=== PATIENT | male | born 1980 | race Caucasian/White ===

== ENCOUNTER 2020-07-06 16:36 | Emergency (ER) | payer OTHER, MEDICARE ==
[~2020-07-06] VITALS: Ht 175.3 cm; Wt 77.5 kg
--- NOTE | 2020-07-06 17:00 | NUR ---
PT BIB BY EMS FOR LOWER BACK PAIN THAT RADIATES TO BILATERAL LEGS. PT REFERRED FROM URGENT CARE. PT HAD BACK SURGERY AT [facility] JUNE 2019. PAIN 02/19. PT ALSO HAS NUMBNESS AND TINGLING IN THE LOWER EXTS. PT HAD A RECENT FALL WELL AND BLACKED OUT.
--- NOTE | 2020-07-06 17:23 | NUR ---
DR YEE BEDSIDE
[2020-07-06] MEDS ORDERED: SODIUM CHLORIDE FLUSH 10ML SYR IVF ONE (18:00)
[2020-07-06] MEDS ORDERED: LORazepam 2 MG/ML, 1ML IVPush ONE (18:00)
--- NOTE | 2020-07-06 18:24 | NUR ---
PT REQUESTING DILAUDID DUE TO PAIN AND MRI SCAN. PT STATES HE HAS HAD MRI'S BEFORE AND NEEDS PAIN MEDS IT FOR HIS BACK PAIN BEFORE HE CAN DO THE MRI.
[2020-07-06 18:25] LABS: BASOPHILS % (AUTO) 1 % (0-1); EOSINOPHILS % (AUTO) 1 % (1-7); LYMPHOCYTES % (AUTO) 33 % (22-44); MD NO; MEAN CORPUSCULAR HEMOGLOBIN 32.1 pg (27.5-34.5); MEAN CORPUSCULAR HGB CONC 34.4 g/dL (33.2-36.2); MEAN PLATELET VOLUME 7.7 fL (7.4-10.4); MONOCYTES % (AUTO) 5 % (2-9); NEUTROPHILS % (AUTO) 61 % (42-75); PLATELET COUNT 262 x10^3/uL (130-400); RED BLOOD COUNT 4.39 x10^6/uL (4.38-5.82)
[2020-07-06 18:31] LABS: MICROSCOPIC NOT IND
[2020-07-06] MEDS ORDERED: LORazepam 2 MG/ML, 1ML ONE (18:37)
[2020-07-06 18:39] LABS: ALANINE AMINOTRANSFERASE 63 U/L (12-78); ALBUMIN 4.3 g/dL (3.4-5.0); ANION GAP 8 mmol/L (5-15); CALCIUM 8.9 mg/dL (8.5-10.1); CHLORIDE 108 mmol/L (98-107); CREATININE 0.81 mg/dL (0.7-1.3)
[2020-07-06 18:41] LABS: ALKALINE PHOSPHATASE 80 U/L (45-117); BILIRUBIN,TOTAL 0.6 mg/dL (0.2-1.0); TOTAL PROTEIN 8.1 g/dL (6.4-8.2)
--- NOTE | 2020-07-06 18:44 | NUR ---
PT OFF THE FLOOR TO MRI
--- NOTE | 2020-07-06 18:46 | NUR ---
REPORT FROM BRAULIO HERNANDEZ, PT CARE TRANSFERRED AT THIS TIME.
[2020-07-06] MEDS ORDERED: HYDROmorphone 1 MG/ML, 1ML INJ ONE (19:09)
--- NOTE | 2020-07-06 19:19 | NUR ---
mri called, pt unable to hold still d/t pain. RN informed ERP, orders provided, pt medicated per jul in MRI. MRI resumed, pt nad, wctm.
[2020-07-06] MEDS ORDERED: HYDROmorphone 1 MG/ML, 1ML INJ IV ONE (19:30)
--- NOTE | 2020-07-06 19:57 | NUR ---
pt back from mri, states pain has decreased but is still present, provided additional blankets for comfort, nad, wctm.
--- NOTE | 2020-07-06 20:44 | NUR ---
pt resting on gurney, nad, bed in lowest, rails engaged, call light on lap, denies additional needs at this time, call light on lap, wctm.
[2020-07-06 21:13] VITALS: BP 127/81
--- NOTE | 2020-07-06 21:16 | NUR ---
Patient given discharge instructions and they have confirmed that they understand the instructions. Patient ambulatory with steady gait BUT PREFERS WHEELCHAIR TO DC. STATES HIS ROOMMATE WILL PICK HIM UP. PT STATES "ITS JUST HARD TO GET AROUND CAUSE I AM IN PAIN, CANT YOU GUYS SEND ME HOME WITH SOMETHING? THE [employer] DOESNT CUT IT." PT INFORMED THAT MED PRESCRIPTIONS ARE AT MD DISCUSSION AND SHE IS NOT PRESCRIBING A HOME MEDICATION. PT NAD, ALL QUESTIONS ANSWERED, PROVIDED NEW MASK, DENIES ADDITIONAL NEED, NO PERSONAL BELONGINGS LEFT IN ROOM AFTER DC.
== END 2020-07-06 21:26 | disposition home or self-care (01) ==
LOC: ED 21:00
DX: M54.16 Radiculopathy, lumbar region (principal); R94.31 Abnormal electrocardiogram [ECG] [EKG]; W01.0XXA Fall on same level from slipping, tripping and stumbling without subsequent striking against object, initial encounter; Y93.89 Activity, other specified; Y92.89 Other specified places as the place of occurrence of the external cause; Y99.8 Other external cause status
CPT/HCPCS: 36415; 72148; 80053; 81003; 85025; 93005; 96374; 96375; 99285; J1170; J2060